=== PATIENT | male | born 1940 | race Caucasian/White ===

== ENCOUNTER 2017-06-17 02:24 | Inpatient (IN) | payer OTHER, MEDICARE ==
[~2017-06-17] VITALS: Ht 177.8 cm; Wt 93.4 kg
[~2017-06-17 02:24] MED LIST: BISOPROLOL-HCT1 EAC1 PO; CIPRO250 M1 PO; COZAAR50 M1 PO; CRESTOR40 M2 PO; FLOMAX0.4 M1 PO; METFORMIN HCL500 M3 PO; OMEPRAZOLE20 M2 PO; VITAMIN B-121000 MC3 PO
--- NOTE | 2017-06-17 11:23 | Admission Core Measures ---
Acute Coronary Syndrome (CM) ACS Core Measures Acute Coronary Syndrome Diagnosis No Congestive Heart Failure (NEW) CHF Core Measures Congestive Heart Failure Diagnosis No Cerebrovascular Accident (NEW) CVA Core Measures CVA/TIA Diagnosis No Venous Thromboembolism VTE Core Lucita (View Protocol) VTE Risk Factors Surgery No Mechanical VTE Prophylaxis d/t N/A MechProphylax Ordered No VTE Pharm Prophylaxis d/t NA PharmProphylax ordered Problem List As ranked by this Provider includes Assessment & Plan 1. Unilateral primary osteoarthritis, left hip HOME MEDS Home Med List Bisoprolol Fumarate/Hctz (Bisoprolol-Hctz 5-6.25 MG Tab) 5 MG-6.25 MG TABLET 1 TAB PO DAILY bp (Reported) Ciprofloxacin HCl (Cipro) 250 MG TABLET 1 TAB PO BID UTI (Reported) Cyanocobalamin (Vitamin B-12) 1,000 MCG TABLET 1 TAB PO DAILY supp (Reported) Losartan Potassium (Cozaar) 50 MG TABLET 1 TAB PO DAILY BP (Reported) Metformin HCl 500 MG TABLET 1 TAB PO BID DM (Reported) Omeprazole 20 MG CAPSULE.DR 1 CAP PO DAILY relfux (Reported) Rosuvastatin Calcium (Crestor) 40 MG TABLET 1 TAB PO DAILY chol (Reported) Tamsulosin HCl (Flomax) 0.4 MG CAP.ER.24H 1 CAP PO DAILY prostate (Reported)
[2017-06-17] MEDS ORDERED: COLACE100 M1 PO (11:43)
[2017-06-17] MEDS ORDERED: ASPIRIN325 M2 PO (11:43)
[2017-06-17] MEDS ORDERED: DILAUDID2 M1 PO (11:43)
[2017-06-17] MEDS ORDERED: MIRALAX17 G1 PO (11:43)
--- NOTE | 2017-06-17 11:49 | Patient Discharge Instructions ---
Discharge Instructions General Discharge Information You were seen/treated for: Left hip osteoarthritis You had these procedures: Left total hip replacement Watch for these problems: Increasing pain despite the use of pain medication Increasing redness, warmth or swelling Drainage of any type from incision Inability to bear weight on operative leg Persistent nausea and vomiting Fever greater than 101.5 degrees Other wound care: Please keep wound clean and dry. No ointments or lotions of any type on or near incision at any time. No exceptions. Your dressing will be changed by your nurse on the second day after your surgery. Daily dry dressing changes are recommended each day thereafter. Do not soak your wound in a bath at any time until otherwise indicated by your surgeon. You may shower, please dry wound immediately after shower with a clean towel. Special Instructions: Aspirin: You are taking this medication to help prevent blood clot formation. Please take with food to protect your stomach lining. Please take as directed. Constipation: Pain medication can cause constipation. Dr. Belle has recommended that you take Colace and miralax each day. You may discontinue this medication if you develop loose stool or diarrhea. If you wish to continue this medication, it is available over the counter. If you are unable to move your bowels after several days, if you are unable to pass gas and are developing bloating, nausea, or vomiting as a result, please contact your doctor. Diet Continue normal diet: Yes Recommended Diet: Diabetic Activity Full Activity/No Limits: No Activity Self Limited: Yes Activity Limited to: Weight bear as tolerated Additional ACTIVITY Info: Use rolling walker as needed Acute Coronary Syndrome Inclusion Criteria At DC or during hospital stay patient has or had the following: ACS DIAGNOSIS No Discharge Core Measures Meds if any: Prescribed or Continued at Discharge Meds if any: NOT Prescribed or Continued at Discharge Congestive Heart Failure Inclusion Criteria At DC or during hospital stay patient has or had the following: CHF DIAGNOSIS No Discharge Core Measures Meds if any: Prescribed or Continued at Discharge Meds if any: NOT Prescribed or Continued at Discharge Cerebrovascular accident Inclusion Criteria At DC or during hospital stay patient has or had the following: CVA/TIA Diagnosis No Discharge Core Measures Meds if any: Prescribed or Continued at Discharge Meds if any: NOT Prescribed or Continued at Discharge Venous thromboembolism Inclusion Criteria VTE Diagnosis No VTE Type NONE VTE Confirmed by (Test) NONE Discharge Core Measures - Per Current guidelines, there needs to be overlap - treatment for the first 5 days of Warfarin therapy. - If discharged on Warfarin prior to 5 days of - overlap therapy, the patient will need to be - assessed for post discharge needs including - *Post discharge parental anticoagulation - *Warfarin and/or parental anticoagulation education - *Follow up date to check INR post discharge At least 5 days overlap therapy as Inpatient No Meds if any: Prescribed or Continued at Discharge Note: Overlap Therapy is Warfarin and Anticoagulant Meds if any: NOT Prescribed or Continued at Discharge
--- NOTE | 2017-06-17 11:50 | Surg Short-stay <48hrs Dis Sum ---
Visit Information Visit Dates Admission Date: 06/17/17 Discharge Date: 06/19/17 Surgical Short Stay DC Summary Admission Diagnosis: Primary osteoarthritis, left hip Final Diagnosis: Same, s/p L THR Procedure(s): Left total hip replacement Summary/Significant Findings: Patient was admitted to the hospital for an elective total joint replacement. The procedure was tolerated well and patient was transferred to a general surgical floor. Diet was advanced and tolerated, and the patient voided spontaneously. The patient was evaluated and treated by physical therapy. At the time of hospital discharge, the vital signs were stable, neurovascular status was intact, and pain was controlled with the use of oral pain medications. Condition at Discharge: Stable Discharge Disposition: home health services Discharge instructions provided to patient/family: Yes Post discharge follow-up plan: Follow up in [address] Belle Copies to: Jose MCCORMACK,Trevor Burnett
--- NOTE | 2017-06-17 13:54 | Operative Report ---
Operative/Inv Procedure Report Surgery Date: 06/17/17 Name of Procedure: Left total hip replacement Pre-Operative Diagnosis: Primary left hip DJD Post-Operative Diagnosis: Same Estimated Blood Loss: 250 Surgeon/Veterinary Attendant: Yoshi MCCORMACK,Leonel Mazariegos Anesthesia: block Operative/Procedure Note Note: Description of Procedure: The patient was taken to the operating room and positively identified. After induction of spinal anesthesia and administration of appropriate pre-operative antibiotics, the patient was positioned supine on the operating room table and all bony prominences were well padded. After performing a surgical timeout, the left lower extremity was prepped and draped in the usual sterile fashion. A direct anterior approach was made to the left hip. The incision was carried sharply through superficial soft tissues to the level of the fascia. Meticulous hemostasis was maintained with Bovie electocautery. The fascia over the tensor fascia nacho muscle was opened sharply and the interval between the TFL and the sartorius was entered bluntly taking care to stay lateral to the lateral femoral cutaneous nerve. Retractors were placed around the femoral neck and the pericapsular fat was identified. The ascending branches of the lateral femoral circumflex vessels were identified and carefully coagulated. The pericapsular fat and anterior capsule were then resected. A napkin ring osteotomy was performed and the femoral head was removed without difficulty. Attention was then turned to the acetabulum. After appropriate placement of retractors, the acetabulum was exposed. Soft tissue was cleaned from the acetabular margin and notch. Overhanging osteophytes were removed and the teardrop was exposed. The acetabulum was then sequentially reamed to accept a 58 mm Alton Tritanium hemispherical solid shell. This was impacted into place in the appropriate position and fitted with a 36 mm Trident X3 zero degree polyethylene insert. Attention was then turned to the femur. After performing the appropriate ligament releases, the proximal femur was exposed. It was then sequentially broached to accept a size 6 Marcel Anato stem. This was trialed for leg length and stability. The trial component was removed and the final component was impacted into place. The trunnion was carefully cleaned and fit with a 36 mm, - 5 Biolox delta ceramic femoral head. The hip was reduced and put through a full range of motion and found to be stable. The articular space was then irrigated with sterile saline. The periarticular soft tissues were infilitrated with Marcaine. The fascial layer was closed with interrupted #1 vicryl suture and the skin was re-approximated with interrupted 2 -0 vicryl. The skin was closed with a running 3-0 V-Lock suture. Steri-strips and a sterile dressing were applied. The patient was awakened and taken to the recovery room in satisfactory condition.
[2017-06-17 15:30] VITALS: BP 104/70
--- NOTE | 2017-06-17 15:43 | RADIOLOGY REPORT ---
EXAMINATION: XR HIP, LEFT CLINICAL INFORMATION: Status post left hip replacement. COMPARISON: None TECHNIQUE: AP and frog-leg lateral views of the left hip. FINDINGS: A left hip prosthesis was placed. There is expected subcutaneous gas present. No acute injury is identified. IMPRESSION: Expected appearance status post left hip prosthesis.
--- NOTE | 2017-06-17 15:53 | PN- Orthopedic ---
Subjective Subjective: poc: no pain, no comlaints, no cp/sob, all questions answered. Objective Vital Signs and I&Os VSS Afebrile Physical Exam: Well-developed well-nourished no apparent distress. HEENT: Atraumatic, extraocular motion intact Neck: Supple, no lymphadenopathy Respiratory: No respiratory distress Extremities: No edema Left lower extremity dressing in place, CDI ALPS in place Neurovascularly intact distally, still some mild effects of spinal but motor function is intact Bilateral calves are supple, nontender. Neuro: Alert and oriented x3 Psych: Mood affect normal, normal memory normal judgment. Skin: Warm and dry, no rash on exposed skin Assessment/Plan Assessment/Plan Postop day #0 status post left total hip arthroplasty Perioperative antibiotics. Pain medication as needed. Out of bed Physical therapy, weightbearing as tolerated Continue IV fluids Regular diet Follow a.m. labs Aspirin for DVT prophylaxis ALPS for DVT prophylaxis Regular home meds Dressing change postop day 2 plan for DC home w vna services POD2 Core Measures Venous Thromboembolism VTE Risk Factors Surgery No Mechanical VTE Prophylaxis d/t N/A MechProphylax Ordered No VTE Pharm Prophylaxis d/t NA PharmProphylax ordered
[2017-06-17 19:33] VITALS: BP 102/72
[2017-06-17 23:21] VITALS: BP 100/60
[2017-06-18 02:44] VITALS: BP 112/72
--- NOTE | 2017-06-18 07:28 | PN- Orthopedic ---
Subjective Subjective: No complaints overnight, pain is controlled with medication. No acute events. He is voiding. Objective Vital Signs and I&Os Vital Signs Date Time Temp Pulse Resp B/P B/P Pulse O2 O2 Flow FiO2 Mean Ox Delivery Rate 06/18 0244 97.5 61 18 112/72 97 Room Air 06/18 0000 97 Room Air 06/17 2321 97.8 61 20 100/60 97 Room Air 06/17 1938 Room Air Room Air 06/17 1933 97.8 59 19 102/72 92 Room Air 06/17 1530 97.4 55 18 104/70 94 Room Air Intake & Output 06/18 0800 06/18 0000 06/17 1600 06/17 0800 06/17 0000 06/16 1600 Intake Total 1080 Output Total 775 800 Balance -775 280 Intake, IV 600 Intake, Oral 480 Number 0 Bowel Movements Output, Urine 775 800 Patient 206 lb Weight Physical Exam: Well-developed well-nourished no apparent distress. HEENT: Atraumatic, extraocular motion intact Neck: Supple, no lymphadenopathy Respiratory: No respiratory distress Extremities: No edema Left lower extremity dressing in place, CDI ALPS in place Neurovascularly intact distally Bilateral calves are supple, nontender. Neuro: Alert and oriented x3 Psych: Mood affect normal, normal memory normal judgment. Skin: Warm and dry, no rash on exposed skin Results Last 48 Hours of Labs: Laboratory Tests 06/18 0637 Chemistry Sodium Pending Potassium Pending Chloride Pending Carbon Dioxide Pending Anion Gap Pending BUN Pending Creatinine Pending BUN/Creatinine Ratio Pending Hematology CBC w Diff Pending WBC Pending RBC Pending Hgb Pending Hct Pending MCV Pending MCH Pending MCHC Pending RDW Pending Plt Count Pending MPV Pending Assessment/Plan Assessment/Plan Postop day #1 status post left total hip arthroplasty Perioperative antibiotics. Pain medication as needed. Out of bed Physical therapy, weightbearing as tolerated DC IV fluids Regular diet Follow a.m. labs Aspirin for DVT prophylaxis ALPS for DVT prophylaxis Regular home meds Dressing change postop day 2 plan for DC home w vna services POD2 Core Measures Venous Thromboembolism VTE Risk Factors Surgery No Mechanical VTE Prophylaxis d/t N/A MechProphylax Ordered No VTE Pharm Prophylaxis d/t NA PharmProphylax ordered
[2017-06-18 07:29] VITALS: BP 126/78
[2017-06-18 08:15] LABS: ABSOLUTE BASOPHIL COUNT 0 /CUMM (0.0-0.2); ABSOLUTE EOSINOPHIL COUNT 0 /CUMM (0.0-0.7); ABSOLUTE GRANULOCYTE CT 3.7 /CUMM (1.4-6.5); ABSOLUTE LYMPH COUNT 0.6 /CUMM (1.2-3.4); ABSOLUTE MONOCYTE COUNT 0.4 /CUMM (0.10-0.60); BASOPHIL % 0.2 % (0.0-2.0); EOSINOPHIL % 0 % (0-5); GRANULOCYTE % 78.4 % (42.2-75.2); HEMATOCRIT 31.8 % (42-52); MEAN CORPUSCULAR HGB 32.6 PG (27.0-31.0); MEAN CORPUSCULAR HGB CONC 34.4 G/DL (33.0-37.0); MEAN CORPUSCULAR VOLUME 94.6 FL (80.0-94.0); MEAN PLATELET VOLUME 8.5 FL (7.4-10.4); PLATELET COUNT 146 /CUMM (130-400); RBC DISTRIBUTION WIDTH 13.6 % (11.5-14.5); RED BLOOD CELL CT 3.36 /CUMM (4.70-6.10); WHITE BLOOD CELL COUNT 4.7 /CUMM (4.8-10.8)
[2017-06-18 12:36] VITALS: BP 138/80
[2017-06-18 15:31] VITALS: BP 100/60
[2017-06-18 18:30] VITALS: BP 110/66
[2017-06-18 22:16] VITALS: BP 90/60
[2017-06-19 02:14] VITALS: BP 106/66
[2017-06-19 07:04] VITALS: BP 126/78
--- NOTE | 2017-06-19 07:38 | PN- Orthopedic ---
Subjective Subjective: 76-year-old male postop day #2 left total hip arthroplasty. Patient's seen lying in bed is very anxious and feels that he is having a lot of pain with movement of the left leg. He doesn't feel that he can be discharged today, he denies fevers or chills, he has tolerating by mouth's but has not had a bowel movement yet Objective Vital Signs and I&Os Vital Signs Date Time Temp Pulse Resp B/P B/P Pulse O2 O2 Flow FiO2 Mean Ox Delivery Rate 06/19 0704 97.8 85 18 126/78 96 Room Air 06/19 0214 98.1 68 18 106/66 94 Room Air / 0000 96 Room Air 06/18 2216 98.4 72 18 90/60 96 Room Air 06/18 1830 98.9 72 20 110/66 98 Room Air / 1531 97.6 73 20 100/60 97 04/05 1236 97.6 70 18 138/80 97 04/05 0858 70 138/70 04/ 0857 70 140/80 Intake & Output 06/19 0800 04/ 0000 04/05 1600 /05 0800 04/ 0000 / 1600 Intake Total 290 788 519 2324 Output Total 103 770 3793 800 Balance -200 190 500 -375 280 Intake, IV 10 600 600 Intake, Oral 280 500 50 480 Number 0 0 0 Bowel Movements Output, Urine 420 656 1523 800 Patient 206 lb Weight Physical Exam: 1 physical examination patient is alert and oriented sleepy lying in bed vital signs are stable and he is afebrile chest is clear auscultation symmetric without rales rhonchi or wheeze heart is regular rate and rhythm without murmurs rubs gallops abdomen is rounded without distention on inspection of the left hip there is moderate edema with some ecchymosis. Dressings were changed yesterday. Bilaterally and distal pulses are intact Assessment/Plan Assessment/Plan Plan -we will see how he does with physical therapy today he will continue on DVT prophylaxis which is aspirin. Continue with bowel regime DC planning for this afternoon but he may need an extra day Core Measures Venous Thromboembolism VTE Risk Factors Surgery No Mechanical VTE Prophylaxis d/t N/A MechProphylax Ordered No VTE Pharm Prophylaxis d/t NA PharmProphylax ordered
--- NOTE | 2017-06-19 08:54 | RADIOLOGY REPORT ---
EXAMINATION: XR HIP, LEFT CLINICAL INFORMATION: Left hip pain, postop hip replacement COMPARISON: 06/17/2017 TECHNIQUE: Two views of the left hip. FINDINGS: Patient is status post left total hip arthroplasty. Hardware components appear well-seated and in anatomic alignment. No acute fracture is seen. Soft tissue gas adjacent to the left hip is in keeping with recent surgery. IMPRESSION: Status post left hip arthroplasty with anatomic alignment and postoperative changes.
[2017-06-19 14:08] VITALS: BP 90/60
[2017-06-19] MEDS ORDERED: ASPIRIN EC325 M2 PO (17:22)
[2017-06-19] MEDS ORDERED: MIRALAX17 G1 PO (17:22)
[2017-06-19] MEDS ORDERED: COLACE100 M1 PO (17:22)
[2017-06-19] MEDS ORDERED: DILAUDID2 M1 PO (17:22)
== END 2017-06-19 17:07 | disposition home health service (06) | DRG 470 ==
LOC: SDA 02:24 → ENRESERV 14:32 → ENTRNSPT 15:02 → EDTRNSPT 15:03 → 2NA 15:24 → EDTRNSPTSTS 15:31 → EDTRNSPT 15:31 → CMPTRNSPT 15:38 → ENPENDDIS 06-19 14:18 → 2NA 06-19 17:07
PROVIDERS: Physician Assistant Surgical
PROC: 0SRB04A Replacement of Left Hip Joint with Ceramic on Polyethylene Synthetic Substitute, Uncemented, Open Approach (ICD-10-PCS; principal; 2017-06-17)
DX: M16.12 Unilateral primary osteoarthritis, left hip (principal); E11.9 Type 2 diabetes mellitus without complications; E78.5 Hyperlipidemia, unspecified; I10 Essential (primary) hypertension; K21.9 Gastro-esophageal reflux disease without esophagitis; K22.70 Barrett's esophagus without dysplasia; M54.30 Sciatica, unspecified side; Z79.84 Long term (current) use of oral hypoglycemic drugs; Z79.82 Long term (current) use of aspirin
CPT/HCPCS: 2NAP; 36592; 73502-LT; 82436; 97110-GO; 97116-GO; 97161-GP; J0690; J0735; J2405; J2550; J3490; J7042